=== PATIENT | male | born 1990 | race Caucasian/White ===

== ENCOUNTER 2018-10-06 00:53 | Emergency (ER) | payer SELFPAY ==
[~2018-10-06] VITALS: Ht 193 cm; Wt 77.3 kg
[2018-10-06 00:57] VITALS: BP 111/74; TEMP 98.6
[2018-10-06] MEDS ORDERED: DOXYCYCLINE 10100 MG PO (01:19)
[2018-10-06] MEDS ORDERED: FLAGYL500 MG PO (01:19)
[2018-10-06 02:10] VITALS: PULSE 110
[2018-10-08] MEDS ORDERED: DOXYCYCLINE 10100 MG PO (10:13)
[2018-10-08] MEDS ORDERED: FLAGYL500 MG PO (10:13)
== END 2018-10-06 02:10 | disposition home or self-care (01) ==
LOC: COL.ER 00:53
DX: S61.552A Open bite of left wrist, initial encounter (principal); F17.220 Nicotine dependence, chewing tobacco, uncomplicated; Z88.0 Allergy status to penicillin; W54.0XXA Bitten by dog, initial encounter; Y92.410 Unspecified street and highway as the place of occurrence of the external cause
CPT/HCPCS: 90375

== ENCOUNTER 2018-10-28 12:14 | Emergency (ER) | payer SELFPAY ==
[~2018-10-28] VITALS: Ht 193 cm; Wt 80.0 kg
[~2018-10-28 12:14] MED LIST: DOXYCYCLINE 10100 MG PO; FLAGYL500 MG PO
[2018-10-28 12:16] VITALS: TEMP 98.7
[2018-10-28] MEDS ORDERED: DILANTIN 100MG100 MG PO ×2 (12:23→15:36)
[2018-10-28 14:31] LABS: BASO % 0.4 % (0.0-2.0); GRAN # 5.5 (1.4-6.5); GRAN % 75.7 % (42.2-75.2); HEMATOCRIT 41.7 % (42.0-52.0); LYMPH # 1.2 (1.2-3.4); LYMPH % 16.7 % (20.0-51.0); MEAN CELL VOLUME 86 fl (80.0-100.0); MEAN CORPUSCULAR HEMOGLOBIN 31 pg (27.0-31.0); MEAN CORPUSCULAR HGB CONC 36 g/dl (33.0-37.0); MEAN PLATELET VOLUME 10.6 fl (7.4-10.4); MONO # 0.5 (0.1-0.6); MONO % 6.9 % (1.7-9.3); PLATELET COUNT 170 K/mm3 (130-400); RED BLOOD COUNT 4.87 M/mm3 (4.20-5.60); REDCELL DISTRIBUTION WIDTH-CV 12.4 % (11.5-14.5)
[2018-10-28 14:44] LABS: ALANINE AMINOTRANSFERASE 23 U/L (21-72); ALBUMIN 4.4 gm/dL (3.5-5.0); ALKALINE PHOSPHATASE 67 U/L (50-136); ANION GAP 8 mmol/L (7-16); AST,SGOT 26 U/L (15-37); BILIRUBIN,TOTAL 0.6 mg/dL (0.0-1.0); BLOOD UREA NITROGEN 15 mg/dL (9-20); CALCIUM 9.6 mg/dL (8.4-10.2); CARBON DIOXIDE 26 mmol/L (22-30); CHLORIDE 105 mmol/L (98-107); CREATININE, serum 0.77 mg/dL (0.66-1.25); GLUCOSE 78 mg/dL (74-106); LIPASE 64 U/L (23-300); POTASSIUM 3.8 mmol/L (3.4-5.0); SODIUM 140 mmol/L (137-145); TOTAL PROTEIN 7.3 gm/dL (6.4-8.2)
[2018-10-28 15:01] LABS: TROPONIN-I < 0.012 ng/mL (0.000-0.034)
[2018-10-28 15:58] VITALS: BP 107/66; PULSE 97
== END 2018-10-28 15:54 | disposition home or self-care (01) ==
LOC: COL.ER 12:14
PROVIDERS: Nurse Practitioner
DX: R07.89 Other chest pain (principal); F31.9 Bipolar disorder, unspecified; F43.10 Post-traumatic stress disorder, unspecified; F90.9 Attention-deficit hyperactivity disorder, unspecified type; Z88.0 Allergy status to penicillin; F17.220 Nicotine dependence, chewing tobacco, uncomplicated
CPT/HCPCS: J1885; J7030